=== PATIENT | male | born 1940 | race Caucasian/White ===

== ENCOUNTER 2018-09-10 16:05 | Inpatient (IN) | payer MEDICARE, MEDICAID ==
[~2018-09-10] VITALS: Ht 167.6 cm; Wt 70.2 kg
[~2018-09-10 16:05] MED LIST: HYDR-3237 PO; None at this Time
[2018-09-10] MEDS ORDERED: SODIUM CHLORIDE 0.9% 1,000 ML IV ONE (16:10)
--- NOTE | 2018-09-10 16:24 | NUR ---
LAB AT BEDSIDE OBTAINING FULL SET OF LABS INCLUDING LACTATE AND CULTURES X2
--- NOTE | 2018-09-10 16:29 | NUR ---
BIB BY [facility] FOR SOB X 7 DAYS. ROOM AIR SAT 88%- EMS PLACED 4L NC/ADMINISTERED 1 ALBUTEROL AND 3 DUONEBS AND POX IMPROVED TO 93%. SEEN BY PCP TODAY AND PRESCRIBED STEROIDS AND AZITHROMYCIN-PATIENT UNSURE OF WHAT MEDS HE TOOK TODAY. AFEBILE (REPORTS CHILLS), WET COUGH, HR 125 PROVIDER TO BEDSIDE-SEPTIC WORKUP
[2018-09-10] MEDS ORDERED: methylPREDNISolone SOD SUCC 125 MG/2 ML IVP ONE (16:30)
[2018-09-10] MEDS ORDERED: CEFTRIAXONE PMX 1GM/50ML 50 ML IVPB ONE (16:30)
[2018-09-10] MEDS ORDERED: PLEASE ENTER HEIGHT AND WEIGHT MC SCH (16:30)
[2018-09-10] MEDS ORDERED: AZITHROMYCIN 500 MG in SODIUM CHLORIDE 0.9% 250 ML IVPB ONE (16:30)
[2018-09-10] MEDS ORDERED: SODIUM CHLORIDE FLUSH 10ML SYR IVF ONE (16:30)
--- NOTE | 2018-09-10 16:31 | NUR ---
SPUTUM CULTURE OBTAINED AT [id number]
--- NOTE | 2018-09-10 16:34 | NUR ---
RT AT BEDSIDE
[2018-09-10] MEDS ORDERED: ATOR20TA86 PO (16:37)
[2018-09-10] MEDS ORDERED: ASPI-496 PO (16:37)
--- NOTE | 2018-09-10 16:37 | NUR ---
CXR AT BEDSIDE
[2018-09-10] MEDS ORDERED: CEFTRIAXONE PMX 1GM/50ML 0 ML ONE (16:40)
[2018-09-10] MEDS ORDERED: HYDROcodone/APAP 5/325 TABLET ONE (16:42)
[2018-09-10] MEDS ORDERED: methylPREDNISolone SOD SUCC 125 MG/2 ML ONE (16:42)
--- NOTE | 2018-09-10 16:45 | NUR ---
MEDICATED PER EMAR: 1L NS BOLUS 1GM ROCEPHIN IV (BLOOD CULTURES/SPUTUM CULTURES ALREADY OBTAINED 5MG NORCO FOR RIB PAIN RATED AT 8/10 FROM COUGHING 125MG METHYLPREDNISONE EYE DROPS ORDERED FROM PHARMACY
--- NOTE | 2018-09-10 16:55 | NUR ---
ROCEPHIN COMPLETE-AZITHROMYCIN ADMINISTERED PER EMAR
--- NOTE | 2018-09-10 16:56 | NUR ---
PLACED ON OXY-MASK PER PATIENT REQUEST (NOSE DRYNESS) TITRATED TO 5L
[2018-09-10 16:59] LABS: ALANINE AMINOTRANSFERASE 68 U/L (12-78); ALBUMIN 4.4 g/dL (3.4-5.0); ANION GAP 10 mmol/L (5-15); CALCIUM 9.6 mg/dL (8.5-10.1); CHLORIDE 109 mmol/L (98-107); CREATININE 1.61 mg/dL (0.7-1.3)
[2018-09-10] MEDS ORDERED: HYDROcodone/APAP 5/325 TABLET PO ONE (17:00)
[2018-09-10 17:04] LABS: ALKALINE PHOSPHATASE 59 U/L (45-117); BILIRUBIN,TOTAL 0.7 mg/dL (0.2-1.0); TOTAL PROTEIN 7.6 g/dL (6.4-8.2)
[2018-09-10 17:15] LABS: MEAN CORPUSCULAR HEMOGLOBIN 36.2 pg (27.5-34.5); MEAN CORPUSCULAR HGB CONC 33.8 g/dL (33.2-36.2); MEAN CORPUSCULAR VOLUME 106.9 fL (81-97); MEAN PLATELET VOLUME 6.6 fL (7.4-10.4); PLATELET COUNT 54 x10^3/uL (130-400); RED BLOOD COUNT 4.42 x10^6/uL (4.38-5.82); RED CELL DISTRIBUTION WIDTH 14.1 % (9.4-14.8)
[2018-09-10 17:17] LABS: MD YES
[2018-09-10 17:21] LABS: BANDS%(MANUAL) 10 % (0-7); LYMPH#(MANUAL) 0.72 x10^3/uL (1-3.4); LYMPHS% (MANUAL) 9 % (22-44); MONOS#(MANUAL) 0.48 x10^3/uL (0.3-2.7); MONOS% (MANUAL) 6 % (2-9); SEGS% (MANUAL) 75 % (42-75)
[2018-09-10 17:22] LABS: <PLATELET ESTIMATE> DECREASED; <PLT MORPHOLOGY> NORMAL PLT MORPH
--- NOTE | 2018-09-10 17:32 | NUR ---
IVF COMPLETE EYE DROPS ADMINISTERED FOR RIGHT EYE INFECTION
--- NOTE | 2018-09-10 17:52 | NUR ---
OXY MASK TO 3L- POX 96-98% RESTING COMFORTABLY ON GURNEY REPORTS PAIN IMPROVED TO 4/10 UPDATED ON ESTIMATED POC (ADMIT SHORTLY)
[2018-09-10] MEDS ORDERED: CIPROFLOXACIN OPHTH SOLN 0.3%, 5ML RIGHTEYE SCH ×2 (18:00)
--- NOTE | 2018-09-10 18:39 | NUR ---
PROVIDER REMINDED TO PLACE ADMIT ORDERS-ER PROVIDER TO DO SO SHORTLY PATIENT CONTINUES TO SATURATE WELL ON 3L OXYMASK (94-96%) UPDATED ON POC OFFERED OPPURTUNITY TO REPOSITION/USE RESTROOM. PATIENT DEFERRING. PATIENT IS ASKING FOR COUGH MEDICINE AND PAIN MEDICINE (PAIN REMAINS 4-5/10)-PROVIDER MADE AWARE
[2018-09-10] MEDS ORDERED: ACETAMINOPHEN 325 MG TABLET PO PRN (19:00)
[2018-09-10] MEDS ORDERED: hydrALAzine 20 MG/ML, 1ML IVPush PRN (19:00)
--- NOTE | 2018-09-10 19:07 | NUR ---
Report to brayan marr Clarified ivf rate w/ dr. Stone (chief underwriter concern for fluid overload). Dr. Stone to defer ivf rate to admitting md who is to place orders shortly-brayan made aware
--- NOTE | 2018-09-10 19:11 | NUR ---
REPORT RECEIEVED FROM LILIANE COWAN.
[2018-09-10] MEDS ORDERED: CEFTRIAXONE PMX 1GM/50ML 50 ML ONE (19:23)
[2018-09-10] MEDS: SODIUM CHLORIDE 0.9% 1,000 ML IV SCH (19:26)
--- NOTE | 2018-09-10 19:29 | NUR ---
ns infusing at this time.
[2018-09-10] MEDS: CEFTRIAXONE PMX 2GM/50ML 50 ML IV SCH (19:30)
[2018-09-10] MEDS ORDERED: ALBUTEROL SULFATE 2.5 MG/3 ML NPPB PRN (19:30)
[2018-09-10] MEDS ORDERED: CEFTRIAXONE PMX 2GM/50ML 50 ML ONE (19:31)
--- NOTE | 2018-09-10 19:36 | NUR ---
abx infusing at this time. pt tolerated well.
--- NOTE | 2018-09-10 19:47 | NUR ---
REPORT GIVEN TO KAITLIN COWAN. ALL QUESTIONS ANSWERED.
[2018-09-10] MEDS: DOXYCYCLINE 100MG CAP PO SCH (22:15)
[2018-09-10] MEDS: ERYTHROMYCIN OPHTH 0.5%, 1GM EACHEYE SCH (23:50)
[2018-09-11 00:11] VITALS: BP 155/75
[2018-09-11 01:06] VITALS: BP 132/70
[2018-09-11 04:40] LABS: MEAN CORPUSCULAR HEMOGLOBIN 37.2 pg (27.5-34.5); MEAN CORPUSCULAR HGB CONC 33.9 g/dL (33.2-36.2); MEAN CORPUSCULAR VOLUME 109.5 fL (81-97); RED BLOOD COUNT 3.73 x10^6/uL (4.38-5.82); RED CELL DISTRIBUTION WIDTH 14.1 % (9.4-14.8)
[2018-09-11 04:44] LABS: ALBUMIN 3.4 g/dL (3.4-5.0); ANION GAP 11 mmol/L (5-15); CALCIUM 8.5 mg/dL (8.5-10.1); CHLORIDE 112 mmol/L (98-107)
[2018-09-11 04:48] LABS: ALANINE AMINOTRANSFERASE 50 U/L (12-78); ALKALINE PHOSPHATASE 44 U/L (45-117); BILIRUBIN,TOTAL 0.4 mg/dL (0.2-1.0); CREATININE 1.57 mg/dL (0.7-1.3); TOTAL PROTEIN 6.2 g/dL (6.4-8.2)
[2018-09-11 05:53] LABS: MD YES; MEAN PLATELET VOLUME 7.3 fL (7.4-10.4); PLATELET COUNT 55 x10^3/uL (130-400)
[2018-09-11 05:59] LABS: <PLATELET ESTIMATE> DECREASED; <PLT MORPHOLOGY> NORMAL PLT MORPH; BAND#(MANUAL) 1.32 x10^3/uL; BANDS%(MANUAL) 21 % (0-7); LYMPH#(MANUAL) 0.44 x10^3/uL (1-3.4); LYMPHS% (MANUAL) 7 % (22-44); MONOS#(MANUAL) 0.13 x10^3/uL (0.3-2.7); MONOS% (MANUAL) 2 % (2-9); SEG#(MANUAL) 4.41 x10^3/uL (1.8-6.8); SEGS% (MANUAL) 70 % (42-75)
[2018-09-11 07:48] VITALS: BP 132/74
[2018-09-11] MEDS: GUAIFENESIN/DM 200-20MG, 10ML UDC PO PRN ×3 (07:51→22:19)
[2018-09-11] MEDS: DOXYCYCLINE 100MG CAP PO SCH ×2 (09:00→22:19)
[2018-09-11] MEDS: ERYTHROMYCIN OPHTH 0.5%, 1GM EACHEYE SCH ×3 (09:02→22:19)
[2018-09-11] MEDS: SODIUM CHLORIDE 0.9% 1,000 ML IV SCH ×2 (09:10→22:19)
[2018-09-11 12:57] VITALS: BP 137/73
[2018-09-11] MEDS ORDERED: methylPREDNISolone SOD SUCC 40 MG/ML IV SCH (18:00)
[2018-09-11] MEDS: methylPREDNISolone SOD SUCC 40 MG/ML IV SCH (18:18)
[2018-09-11] MEDS: CEFTRIAXONE PMX 2GM/50ML 50 ML IV SCH (19:36)
[2018-09-11 19:52] VITALS: BP 165/78
[2018-09-12] MEDS: methylPREDNISolone SOD SUCC 40 MG/ML IV SCH ×4 (01:08→19:31)
[2018-09-12 02:43] VITALS: BP 119/81
[2018-09-12] MEDS: GUAIFENESIN/DM 200-20MG, 10ML UDC PO PRN ×2 (04:32→20:36)
[2018-09-12 06:47] LABS: ANION GAP 8 mmol/L (5-15); CALCIUM 8.5 mg/dL (8.5-10.1); CHLORIDE 113 mmol/L (98-107); CREATININE 1.16 mg/dL (0.7-1.3)
[2018-09-12 07:55] VITALS: BP 150/85
[2018-09-12] MEDS: ERYTHROMYCIN OPHTH 0.5%, 1GM EACHEYE SCH ×3 (08:40→20:49)
[2018-09-12] MEDS: DOXYCYCLINE 100MG CAP PO SCH ×2 (08:40→20:36)
[2018-09-12] MEDS: SODIUM CHLORIDE 0.9% 1,000 ML IV SCH (11:30)
[2018-09-12 12:58] VITALS: BP 181/83
[2018-09-12 19:22] VITALS: BP 168/80
[2018-09-12] MEDS: CEFTRIAXONE PMX 2GM/50ML 50 ML IV SCH (19:31)
[2018-09-13 01:15] VITALS: BP 179/77
[2018-09-13] MEDS: methylPREDNISolone SOD SUCC 40 MG/ML IV SCH ×2 (01:26→08:25)
[2018-09-13 05:38] LABS: ANION GAP 8 mmol/L (5-15); CALCIUM 8.2 mg/dL (8.5-10.1); CHLORIDE 111 mmol/L (98-107); CREATININE 1.08 mg/dL (0.7-1.3)
[2018-09-13 07:34] VITALS: BP 171/98
[2018-09-13] MEDS: DOXYCYCLINE 100MG CAP PO SCH ×2 (08:25→19:58)
[2018-09-13] MEDS: ERYTHROMYCIN OPHTH 0.5%, 1GM EACHEYE SCH ×3 (08:25→19:58)
[2018-09-13] MEDS ORDERED: LISINOPRIL 10 MG TABLET PO SCH (11:00)
[2018-09-13] MEDS: SODIUM CHLORIDE 0.9% 1,000 ML IV SCH ×2 (11:00→16:07)
[2018-09-13] MEDS: AMLODIPINE 5 MG TABLET PO SCH (11:19)
[2018-09-13 11:56] LABS: MEAN CORPUSCULAR HEMOGLOBIN 35.7 pg (27.5-34.5); MEAN CORPUSCULAR HGB CONC 33.5 g/dL (33.2-36.2); MEAN CORPUSCULAR VOLUME 106.6 fL (81-97); MEAN PLATELET VOLUME 7.3 fL (7.4-10.4); RED CELL DISTRIBUTION WIDTH 13.2 % (9.4-14.8)
[2018-09-13 12:02] LABS: PLATELET COUNT 49 x10^3/uL (130-400)
[2018-09-13 12:13] LABS: MD YES
[2018-09-13 12:14] LABS: BAND#(MANUAL) 0.42 x10^3/uL; BANDS%(MANUAL) 4 % (0-7); LYMPH#(MANUAL) 0.31 x10^3/uL (1-3.4); LYMPHS% (MANUAL) 3 % (22-44); MONOS% (MANUAL) 1 % (2-9); SEG#(MANUAL) 9.57 x10^3/uL (1.8-6.8); SEGS% (MANUAL) 92 % (42-75)
[2018-09-13 12:15] LABS: <PLATELET ESTIMATE> DECREASED; <PLT MORPHOLOGY> NORMAL PLT MORPH; TOXIC GRAN 1+
[2018-09-13 14:00] VITALS: BP 140/77
[2018-09-13] MEDS: CEFTRIAXONE PMX 2GM/50ML 50 ML IV SCH (19:57)
[2018-09-13 20:25] VITALS: BP 152/87
[2018-09-14 01:36] VITALS: BP 138/68
[2018-09-14 05:57] LABS: ANION GAP 7 mmol/L (5-15); CALCIUM 8.3 mg/dL (8.5-10.1); CHLORIDE 114 mmol/L (98-107)
[2018-09-14 05:58] LABS: CREATININE 1.08 mg/dL (0.7-1.3)
[2018-09-14 07:37] VITALS: BP 152/89
[2018-09-14] MEDS: DOXYCYCLINE 100MG CAP PO SCH (08:25)
[2018-09-14] MEDS: ERYTHROMYCIN OPHTH 0.5%, 1GM EACHEYE SCH ×2 (08:25→15:37)
[2018-09-14] MEDS: AMLODIPINE 5 MG TABLET PO SCH (08:26)
[2018-09-14] MEDS: SODIUM CHLORIDE 0.9% 1,000 ML IV SCH (08:26)
[2018-09-14 10:31] LABS: MEAN CORPUSCULAR HEMOGLOBIN 35.7 pg (27.5-34.5); MEAN CORPUSCULAR HGB CONC 33.3 g/dL (33.2-36.2); MEAN CORPUSCULAR VOLUME 107.2 fL (81-97); MEAN PLATELET VOLUME 7.2 fL (7.4-10.4); RED BLOOD COUNT 3.48 x10^6/uL (4.38-5.82); RED CELL DISTRIBUTION WIDTH 13.4 % (9.4-14.8)
[2018-09-14 10:33] LABS: PLATELET COUNT 41 x10^3/uL (130-400)
[2018-09-14 10:34] LABS: MD YES
[2018-09-14 10:36] LABS: BAND#(MANUAL) 0.22 x10^3/uL; BANDS%(MANUAL) 3 % (0-7); METAMYELOCYTES# (MANUAL) 0.14 x10^3/uL (0-0); METAMYELOCYTES% (MANUAL) 2 % (0-1)
[2018-09-14 10:37] LABS: ANISOCYTOSIS 1+; LYMPH#(MANUAL) 0.72 x10^3/uL (1-3.4); LYMPHS% (MANUAL) 10 % (22-44); MONOS% (MANUAL) 7 % (2-9); SEG#(MANUAL) 5.62 x10^3/uL (1.8-6.8); SEGS% (MANUAL) 78 % (42-75); TOXIC GRAN 1+
[2018-09-14 10:38] LABS: <PLATELET ESTIMATE> DECREASED; <PLT MORPHOLOGY> NORMAL PLT MORPH; PMNS WITH VACUOLES 1+
[2018-09-14 13:41] VITALS: BP 161/78
[2018-09-14 19:42] VITALS: BP 175/77
[2018-09-14] MEDS: CEFTRIAXONE PMX 2GM/50ML 50 ML IV SCH (20:07)
[2018-09-15 00:16] VITALS: BP 168/86
[2018-09-15 06:10] LABS: MEAN CORPUSCULAR HEMOGLOBIN 35.9 pg (27.5-34.5); MEAN CORPUSCULAR HGB CONC 33.6 g/dL (33.2-36.2); MEAN CORPUSCULAR VOLUME 106.9 fL (81-97); RED BLOOD COUNT 3.52 x10^6/uL (4.38-5.82); RED CELL DISTRIBUTION WIDTH 13.6 % (9.4-14.8)
[2018-09-15 06:18] LABS: ANION GAP 6 mmol/L (5-15); CALCIUM 8.7 mg/dL (8.5-10.1); CHLORIDE 111 mmol/L (98-107)
[2018-09-15 06:22] LABS: CREATININE 1.11 mg/dL (0.7-1.3)
[2018-09-15 07:08] VITALS: BP 175/87
[2018-09-15 07:15] LABS: MD YES
[2018-09-15 07:20] LABS: BAND#(MANUAL) 0.19 x10^3/uL; BANDS%(MANUAL) 3 % (0-7); LYMPH#(MANUAL) 1.34 x10^3/uL (1-3.4); LYMPHS% (MANUAL) 21 % (22-44); MONOS#(MANUAL) 0.45 x10^3/uL (0.3-2.7); MONOS% (MANUAL) 7 % (2-9); SEG#(MANUAL) 4.42 x10^3/uL (1.8-6.8); SEGS% (MANUAL) 69 % (42-75)
[2018-09-15 07:21] LABS: ANISOCYTOSIS 1+; PMNS WITH VACUOLES 1+; TOXIC GRAN 1+
[2018-09-15 07:22] LABS: <PLATELET ESTIMATE> DECREASED; <PLT MORPHOLOGY> NORMAL PLT MORPH
[2018-09-15 07:55] LABS: PLATELET COUNT 44 x10^3/uL (130-400)
[2018-09-15] MEDS: AMLODIPINE 5 MG TABLET PO SCH (08:36)
[2018-09-15 08:37] VITALS: BP 149/78
[2018-09-15] MEDS: LISINOPRIL 10 MG TABLET PO SCH (09:54)
[2018-09-15 14:06] VITALS: BP 161/82
[2018-09-15 17:19] LABS: BASOPHILS % (AUTO) 0 % (0-1); EOSINOPHILS # (AUTO) 0.08 x10^3/uL (0-0.4); EOSINOPHILS % (AUTO) 1 % (1-7); LYMPHOCYTES # (AUTO) 0.51 x10^3/uL (1-3.4); LYMPHOCYTES % (AUTO) 8 % (22-44); MD SCAN; MEAN CORPUSCULAR HEMOGLOBIN 36.8 pg (27.5-34.5); MEAN CORPUSCULAR HGB CONC 34.2 g/dL (33.2-36.2); MEAN CORPUSCULAR VOLUME 107.8 fL (81-97); MONOCYTES # (AUTO) 0.02 x10^3/uL (0.2-0.8); MONOCYTES % (AUTO) 0 % (2-9); NEUTROPHILS # (AUTO) 5.75 x10^3/uL (1.8-6.8); NEUTROPHILS % (AUTO) 90 % (42-75); RED BLOOD COUNT 3.74 x10^6/uL (4.38-5.82); RED CELL DISTRIBUTION WIDTH 13.6 % (9.4-14.8)
[2018-09-15 17:21] LABS: MEAN PLATELET VOLUME 7.3 fL (7.4-10.4)
[2018-09-15 17:22] LABS: PLATELET COUNT 47 x10^3/uL (130-400)
[2018-09-15 19:24] VITALS: BP 173/74
[2018-09-15] MEDS: CEFTRIAXONE PMX 2GM/50ML 50 ML IV SCH (19:26)
[2018-09-15 20:13] VITALS: BP 160/78
[2018-09-16 01:05] VITALS: BP 169/75
[2018-09-16 04:54] LABS: MEAN CORPUSCULAR HEMOGLOBIN 37.1 pg (27.5-34.5); MEAN CORPUSCULAR HGB CONC 34.4 g/dL (33.2-36.2); MEAN CORPUSCULAR VOLUME 107.8 fL (81-97); MEAN PLATELET VOLUME 7.2 fL (7.4-10.4); RED BLOOD COUNT 3.45 x10^6/uL (4.38-5.82); RED CELL DISTRIBUTION WIDTH 13.1 % (9.4-14.8)
[2018-09-16 05:04] LABS: PLATELET COUNT 45 x10^3/uL (130-400)
[2018-09-16 06:03] LABS: BASOPHILS % (AUTO) 0 % (0-1); EOSINOPHILS % (AUTO) 1 % (1-7); LYMPHOCYTES % (AUTO) 13 % (22-44); MONOCYTES # (AUTO) 0.37 x10^3/uL (0.2-0.8); MONOCYTES % (AUTO) 6 % (2-9); NEUTROPHILS # (AUTO) 5.09 x10^3/uL (1.8-6.8); NEUTROPHILS % (AUTO) 80 % (42-75)
[2018-09-16 06:04] LABS: BASOPHILS # (AUTO) 0.01 x10^3/uL (0-0.1); EOSINOPHILS # (AUTO) 0.09 x10^3/uL (0-0.4); MD SCAN
[2018-09-16 06:50] VITALS: BP 164/79
[2018-09-16] MEDS: LISINOPRIL 10 MG TABLET PO SCH (09:12)
[2018-09-16] MEDS: AMLODIPINE 5 MG TABLET PO SCH (09:12)
[2018-09-16 13:13] VITALS: BP 130/69
[2018-09-16] MEDS: CEFTRIAXONE PMX 2GM/50ML 50 ML IV SCH (19:40)
[2018-09-16 19:50] VITALS: BP 131/71
[2018-09-17 01:26] VITALS: BP 146/82
[2018-09-17 05:08] LABS: MEAN CORPUSCULAR HEMOGLOBIN 36.1 pg (27.5-34.5); MEAN CORPUSCULAR HGB CONC 33.7 g/dL (33.2-36.2); MEAN PLATELET VOLUME 7.2 fL (7.4-10.4)
[2018-09-17 05:09] LABS: PLATELET COUNT 42 x10^3/uL (130-400)
[2018-09-17 06:05] LABS: BASOPHILS # (AUTO) 0.01 x10^3/uL (0-0.1); BASOPHILS % (AUTO) 0 % (0-1); EOSINOPHILS # (AUTO) 0.07 x10^3/uL (0-0.4); EOSINOPHILS % (AUTO) 1 % (1-7); LYMPHOCYTES # (AUTO) 0.78 x10^3/uL (1-3.4); LYMPHOCYTES % (AUTO) 12 % (22-44); MD SCAN; MONOCYTES # (AUTO) 0.33 x10^3/uL (0.2-0.8); MONOCYTES % (AUTO) 5 % (2-9); NEUTROPHILS # (AUTO) 5.48 x10^3/uL (1.8-6.8); NEUTROPHILS % (AUTO) 82 % (42-75)
[2018-09-17 08:22] VITALS: BP 132/75
[2018-09-17] MEDS: AMLODIPINE 5 MG TABLET PO SCH (08:58)
[2018-09-17] MEDS: LISINOPRIL 10 MG TABLET PO SCH (08:59)
[2018-09-17 12:43] VITALS: BP 127/68
[2018-09-17] MEDS ORDERED: AMLO-150 PO (14:27)
[2018-09-17] MEDS ORDERED: CEFD300C37 PO (14:27)
[2018-09-17] MEDS ORDERED: PRED10TA PO (14:29)
[2018-09-17] MEDS ORDERED: LISI-167 PO (14:29)
== END 2018-09-17 16:30 | disposition home or self-care (01) | DRG 871 ==
LOC: ED 17:10 → EDIP 18:37 → 4WST 19:59 → DCLOUNGE 09-17 16:25
PROVIDERS: ADMIT Family Medicine; ATTEND Internal Medicine
DX: A41.3 Sepsis due to Hemophilus influenzae (principal); J15.9 Unspecified bacterial pneumonia; J96.01 Acute respiratory failure with hypoxia; N17.0 Acute kidney failure with tubular necrosis; E87.2 Acidosis; J44.0 Chronic obstructive pulmonary disease with (acute) lower respiratory infection; J44.1 Chronic obstructive pulmonary disease with (acute) exacerbation; B96.89 Other specified bacterial agents as the cause of diseases classified elsewhere; D53.9 Nutritional anemia, unspecified; D69.6 Thrombocytopenia, unspecified; E86.0 Dehydration; Z16.11 Resistance to penicillins; F17.210 Nicotine dependence, cigarettes, uncomplicated; H10.9 Unspecified conjunctivitis; Z79.899 Other long term (current) drug therapy; Z86.79 Personal history of other diseases of the circulatory system
CPT/HCPCS: 36415; 71045; 80048; 80053; 82607; 83605; 83615; 83735; 83880; 84145; 85025; 87040; 87070; 87077; 87205; 93005; 96365; 96368; 96375; G0378; J0456; J0696; J2920; J2930; J7030; J7050; J7512

== ENCOUNTER → 2019-03-31 | Outpatient (CLI) | payer MEDICARE, MEDICAID ==
[~2019-03-31] MED LIST changes: +AMLO-150 PO; +ASPI-496 PO; +ATOR20TA86 PO; +CEFD300C37 PO; +LISI-167 PO; +PRED10TA PO
== END | disposition home or self-care (01) ==
LOC: CFH 08:25
PROVIDERS: ATTEND Internal Medicine
DX: D35.02 Benign neoplasm of left adrenal gland (principal); J43.8 Other emphysema; I70.0 Atherosclerosis of aorta; I25.10 Atherosclerotic heart disease of native coronary artery without angina pectoris; K80.80 Other cholelithiasis without obstruction
CPT/HCPCS: 71250

== ENCOUNTER → 2019-04-13 | Outpatient (CLI) | payer MEDICARE, MEDICAID | END | disposition home or self-care (01) | LOC: CFH 09:37 | PROVIDERS: ATTEND Internal Medicine Gastroenterology | DX: K80.20 Calculus of gallbladder without cholecystitis without obstruction (principal); K73.9 Chronic hepatitis, unspecified | CPT/HCPCS: 76700 ==

== ENCOUNTER 2020-10-29 09:32 | Outpatient (CLI) | payer MEDICARE, MEDICAID ==
[2020-10-29 10:42] LABS: BASOPHILS % (AUTO) 1 % (0-1); EOSINOPHILS % (AUTO) 3 % (1-7); LYMPHOCYTES % (AUTO) 32 % (22-44); MEAN CORPUSCULAR HEMOGLOBIN 34.7 pg (27.5-34.5); MEAN CORPUSCULAR HGB CONC 34.3 g/dL (33.2-36.2); MEAN PLATELET VOLUME 7.9 fL (7.4-10.4); MONOCYTES % (AUTO) 8 % (2-9); NEUTROPHILS % (AUTO) 57 % (42-75); RED BLOOD COUNT 3.88 x10^6/uL (4.38-5.82); RED CELL DISTRIBUTION WIDTH 13.2 % (9.4-14.8)
[2020-10-29 11:02] LABS: CHLORIDE 113 mmol/L (98-107)
[2020-10-29 11:03] LABS: ALANINE AMINOTRANSFERASE 120 U/L (12-78); ALKALINE PHOSPHATASE 87 U/L (45-117); ANION GAP 4 mmol/L (5-15); BILIRUBIN,TOTAL 0.6 mg/dL (0.2-1.0); CALCIUM 9.3 mg/dL (8.5-10.1); CREATININE 1.09 mg/dL (0.7-1.3); TOTAL PROTEIN 6.5 g/dL (6.4-8.2)
[2020-10-29 11:04] LABS: ALBUMIN 3.9 g/dL (3.4-5.0)
[2020-10-29] MEDS ORDERED: FLUT16SP24 NAS (11:14)
[2020-10-29] MEDS ORDERED: SUCR1TAB PO (11:14)
[2020-10-29] MEDS ORDERED: FLUT1BLS3 IH (11:14)
[2020-10-29] MEDS ORDERED: MONT10TA17 PO (11:14)
[2020-10-29] MEDS ORDERED: OMEP40CA8 PO (11:14)
[2020-10-29] MEDS ORDERED: ATOR40TA78 PO (11:14)
[2020-10-29] MEDS ORDERED: TAMS-11 PO (11:14)
[2020-10-29] MEDS ORDERED: LISI-167 PO (11:14)
[2020-10-29] MEDS ORDERED: AMLO-150 PO (11:14)
[2020-10-29] MEDS ORDERED: GLIP5TAB10 PO (11:14)
[2020-10-29 13:00] LABS: PLATELET COUNT 47 x10^3/uL (130-400)
[2020-10-29 13:01] LABS: <PLATELET ESTIMATE> DECREASED; <PLT MORPHOLOGY> NORMAL PLT MORPH; <RBC MORPHOLOGY> NORMAL
== END 2020-10-29 23:59 | disposition home or self-care (01) ==
LOC: STAR 09:32
PROVIDERS: ATTEND Internal Medicine Geriatric Medicine
DX: Z01.818 Encounter for other preprocedural examination (principal); K20.90 Esophagitis, unspecified without bleeding; K44.9 Diaphragmatic hernia without obstruction or gangrene
CPT/HCPCS: 36415; 80053; 85025; 93005

== ENCOUNTER 2020-10-31 15:00 | Emergency (ER) | payer MEDICARE, MEDICAID ==
[~2020-10-31] VITALS: Ht 167.6 cm; Wt 64.0 kg
[~2020-10-31 15:00] MED LIST changes: +ATOR40TA78 PO; +FLUT16SP24 NAS; +FLUT1BLS3 IH; +GLIP5TAB10 PO; +MONT10TA17 PO; +OMEP40CA8 PO; +SUCR1TAB PO; +TAMS-11 PO
[2020-10-31 17:25] LABS: MEAN CORPUSCULAR HEMOGLOBIN 35.2 pg (27.5-34.5); MEAN CORPUSCULAR HGB CONC 34.7 g/dL (33.2-36.2); RED BLOOD COUNT 3.81 x10^6/uL (4.38-5.82); RED CELL DISTRIBUTION WIDTH 13.4 % (9.4-14.8)
[2020-10-31 17:36] LABS: ALANINE AMINOTRANSFERASE 90 U/L (12-78); ALBUMIN 4.1 g/dL (3.4-5.0); ANION GAP 3 mmol/L (5-15); CALCIUM 9.3 mg/dL (8.5-10.1); CHLORIDE 112 mmol/L (98-107); CREATININE 1.07 mg/dL (0.7-1.3); INTERNATIONAL NORMALIZED RATIO 1.15 (0.93-1.1); PROTHROMBIN TIME 12.2 Seconds (9.6-11.5)
[2020-10-31 17:38] LABS: ALKALINE PHOSPHATASE 85 U/L (45-117); BILIRUBIN,TOTAL 0.6 mg/dL (0.2-1.0); TOTAL PROTEIN 6.6 g/dL (6.4-8.2)
[2020-10-31 17:57] LABS: PLATELET COUNT 47 x10^3/uL (130-400)
[2020-10-31 18:14] VITALS: BP 129/56
[2020-10-31 18:50] LABS: BASOS#(MANUAL) 0.04 x10^3/uL (0-0.1); BASOS% (MANUAL) 1 % (0-1); EOS#(MANUAL) 0.14 x10^3/uL (0.0-0.4); EOS% (MANUAL) 4 % (1-7); LYMPH#(MANUAL) 1.26 x10^3/uL (1-3.4); LYMPHS% (MANUAL) 35 % (22-44); MONOS#(MANUAL) 0.25 x10^3/uL (0.3-2.7); MONOS% (MANUAL) 7 % (2-9); SEG#(MANUAL) 1.91 x10^3/uL (1.8-6.8); SEGS% (MANUAL) 53 % (42-75)
[2020-10-31 18:52] LABS: <PLATELET ESTIMATE> DECREASED; <PLT MORPHOLOGY> NORMAL PLT MORPH
== END 2020-10-31 18:46 | disposition home or self-care (01) ==
LOC: ED 18:25
DX: D69.6 Thrombocytopenia, unspecified (principal); D64.9 Anemia, unspecified; R94.5 Abnormal results of liver function studies; I10 Essential (primary) hypertension; E11.9 Type 2 diabetes mellitus without complications
CPT/HCPCS: 36415; 80053; 85025; 85610; 85730; 86850; 86900; 93005; 99284

== ENCOUNTER 2020-11-06 05:35 | Day surgery (SDC) | payer MEDICARE, MEDICAID ==
[~2020-11-06] VITALS: Ht 167.6 cm; Wt 65.3 kg
[2020-11-06 06:22] VITALS: BP 118/63
[2020-11-06] MEDS ORDERED: CHLORHEXIDINE 15 ML UDC ONE (06:27)
[2020-11-06] MEDS ORDERED: CHLORHEXIDINE 15 ML UDC PO ONE (06:30)
[2020-11-06] MEDS ORDERED: LACTATED RINGERS 1,000 ML IV SCH (06:30)
[2020-11-06] MEDS ORDERED: PROPOFOL 50 ML ONE (07:31)
[2020-11-06] MEDS ORDERED: DIAZEPAM 5 MG/ML, 2ML IVPush PRN (08:00)
[2020-11-06] MEDS ORDERED: LABETALOL 5MG/ML, 20ML IV PRN (08:00)
[2020-11-06] MEDS ORDERED: FENTANYL PF 100 MCG/2ML IV PRN (08:00)
[2020-11-06] MEDS ORDERED: ONDANSETRON 2MG/ML, 2ML IVPush PRN (08:00)
[2020-11-06] MEDS ORDERED: hydrALAzine 20 MG/ML, 1ML IV PRN (08:00)
== END 2020-11-06 10:24 | disposition home or self-care (01) ==
LOC: OUT 05:35
PROVIDERS: ATTEND Internal Medicine Geriatric Medicine
DX: K22.10 Ulcer of esophagus without bleeding (principal); E11.22 Type 2 diabetes mellitus with diabetic chronic kidney disease; I12.9 Hypertensive chronic kidney disease with stage 1 through stage 4 chronic kidney disease, or unspecified chronic kidney disease; N18.9 Chronic kidney disease, unspecified; J44.9 Chronic obstructive pulmonary disease, unspecified; F31.9 Bipolar disorder, unspecified; G20 Parkinson's disease; Z79.899 Other long term (current) drug therapy; Z87.891 Personal history of nicotine dependence; Z88.8 Allergy status to other drugs, medicaments and biological substances
CPT/HCPCS: 43235; 82962; J2704; J7120